=== PATIENT | female | born 1970 | race Caucasian/White ===

== ENCOUNTER 2017-02-22 18:09 | Emergency (ER) | payer MEDICAID ==
[~2017-02-22] VITALS: Ht 154.9 cm; Wt 61.5 kg
[2017-02-22] MEDS ORDERED: PROPARACAINE HCL 0.5% 15 ML OPHTHALMIC SOLUTION OU ONE (20:15)
[2017-02-22] MEDS ORDERED: HYDROCODONE/ACETAMINOPHEN 10-325 MG TABLET PO ONE (20:15)
[2017-02-22] MEDS ORDERED: FLUORESCEIN SODIUM 1 MG STRIP OD ONE (21:00)
[2017-02-22 22:52] VITALS: BP 128/58
== END 2017-02-22 22:54 | disposition home or self-care (01) ==
LOC: EMS 18:13
DX: S02.40DA Maxillary fracture, left side, initial encounter for closed fracture (principal); S02.2XXA Fracture of nasal bones, initial encounter for closed fracture; S13.4XXA Sprain of ligaments of cervical spine, initial encounter; S00.83XA Contusion of other part of head, initial encounter; F15.90 Other stimulant use, unspecified, uncomplicated; F17.210 Nicotine dependence, cigarettes, uncomplicated; Y09 Assault by unspecified means; Y93.89 Activity, other specified; Y92.89 Other specified places as the place of occurrence of the external cause; Y99.8 Other external cause status
CPT/HCPCS: 70450; 70486; 72125; 99284

== ENCOUNTER 2018-02-04 21:37 | Emergency (ER) | payer MEDICAID ==
[~2018-02-04] VITALS: Ht 154.9 cm; Wt 59.1 kg
[2018-02-04] MEDS ORDERED: BACITRACIN 0.9 GM PACKET OINTMENT TP ONE (22:45)
[2018-02-04 23:13] VITALS: BP 138/88
== END 2018-02-04 23:12 | disposition home or self-care (01) ==
LOC: EMS 21:38
DX: F42.4 Excoriation (skin-picking) disorder (principal); N39.0 Urinary tract infection, site not specified; F17.210 Nicotine dependence, cigarettes, uncomplicated; Z71.6 Tobacco abuse counseling
CPT/HCPCS: 99283; 99406